=== PATIENT | female | born 1970 | race African-American/Black ===

== ENCOUNTER 2016-08-23 13:03 | Emergency (ER) | payer SELFPAY ==
[~2016-08-23] VITALS: Ht 154.9 cm; Wt 73.0 kg
[2016-08-23] MEDS ORDERED: CEFTRIAXONE 1 G PREMIX 50 ML IV ONE (14:00)
[2016-08-23 14:29] LABS: BASOPHILS % 0.4 % (0.0-2.0); HEMATOCRIT. 39.9 % (36.0-48.0); HEMOGLOBIN. 13.4 g/dL (12.0-16.0); LYMPHOCYTES % 24.4 % (20.0-50.0); MEAN CORPUSCULAR HEMOGLOBIN 29.1 pg (28.0-32.0); MEAN CORPUSCULAR HGB CONC 33.5 g/dL (31.0-37.0); MEAN CORPUSCULAR VOLUME 86.9 fL (81.0-99.0); MEAN PLATELET VOLUME 8.3 fl (7.4-10.4); MONOCYTES % 9.4 % (2.0-8.0); NEUTROPHILS % 63.8 % (40.0-76.0); PLATELET 243 x1000/uL (130-400); RED BLOOD CELL COUNT 4.59 mill/uL (4.2-5.4); WHITE BLOOD COUNT 7.6 x1000/uL (4.5-11.0)
[2016-08-23 14:39] LABS: ANION GAP 11; CALCIUM 9.1 mg/dL (8.5-10.1); CARBON DIOXIDE 30 mEq/L (21-32); CHLORIDE 105 mEq/L (98-107); INDEX HEMOLYSI 1 (1-3); INDEX ICTERIC 1 (1-4); INDEX LIPEMIC 1 (1-3); UREA NITROGEN BLOOD 12 mg/dL (7-21); eGFR > 60 mL/min (>60)
[2016-08-23 14:42] LABS: PARTIAL THROMBOPLASTIN TIME 26.1 sec (24.0-34.0); PROTHROMBIN TIME 10.7 sec
[2016-08-23] MEDS ORDERED: AZITHROMYCIN 500 MG TABLET PO ONE (14:45)
[2016-08-23 15:03] LABS: CLARITY URINE TURBID (CLEAR); COLOR URINE YELLOW (YELLOW); GLUCOSE URINE NEGATIVE (NEGATIVE); KETONES URINE NEGATIVE (NEGATIVE); LEUKOCYTE ESTERASE URINE 2+ (NEGATIVE); NITRITE URINE NEGATIVE (NEGATIVE); OCCULT BLOOD URINE 3+ (NEGATIVE); PH URINE 5.5 (4.5-8.0); PROTEIN URINE NEGATIVE (NEGATIVE); SPECIFIC GRAVITY URINE 1.015 (1.005-1.030)
[2016-08-23 15:30] VITALS: BP 129/84
[2016-08-23] MEDS ORDERED: CEFTRIAXONE SODIUM 250 MG/VIAL IM ONE (15:30)
[2016-08-23 15:50] LABS: BACTERIA URINE 4+; SQUAMOUS EPITHELIAL CELL URINE 2+ /lpf (RARE/1+)
[2016-08-26 04:20] LABS: CHLAMYDIA TRACHOMATIS NAA Negative (Negative); NEISSERIA GONORRHOEAE NAA Negative (Negative)
== END 2016-08-23 15:48 | disposition home or self-care (01) ==
LOC: ER 14:46
DX: K62.5 Hemorrhage of anus and rectum (principal); Z20.2 Contact with and (suspected) exposure to infections with a predominantly sexual mode of transmission; I10 Essential (primary) hypertension; Z98.890 Other specified postprocedural states; Z98.51 Tubal ligation status; Z88.8 Allergy status to other drugs, medicaments and biological substances
CPT/HCPCS: 36415; 80048; 81001; 81025; 85025; 85610; 85730; 86850; 86900; 86901; 87491; 87591; 96372; 99285; J0696; Z7610

== ENCOUNTER 2017-05-30 20:59 | Emergency (ER) | payer SELFPAY ==
[~2017-05-30] VITALS: Ht 154.9 cm; Wt 80.0 kg
[2017-05-30 23:14] VITALS: BP 119/82
[2017-05-30] MEDS ORDERED: ONDANSETRON 4MG ODT PO ONE (23:15)
== END 2017-05-31 00:35 | disposition home or self-care (01) ==
LOC: ER 22:29
DX: J06.9 Acute upper respiratory infection, unspecified (principal)
CPT/HCPCS: 71045; 81025; 87804; 99285; Q0162

== ENCOUNTER 2018-03-23 11:00 | Emergency (ER) | payer SELFPAY ==
[~2018-03-23] VITALS: Ht 154.9 cm; Wt 86.0 kg
[2018-03-23 11:08] VITALS: BP 155/103
[2018-03-23 13:08] LABS: CLARITY URINE CLEAR (CLEAR); COLOR URINE YELLOW (YELLOW); KETONES URINE NEGATIVE (NEGATIVE); LEUKOCYTE ESTERASE URINE NEGATIVE (NEGATIVE); NITRITE URINE NEGATIVE (NEGATIVE); OCCULT BLOOD URINE NEGATIVE (NEGATIVE); PROTEIN URINE NEGATIVE (NEGATIVE); SPECIFIC GRAVITY URINE 1.016 (1.005-1.030); UROBILINOGEN URINE 0.2 E.U./dL (0.2-1.0)
[2018-03-23] MEDS ORDERED: AZITHROMYCIN 500 MG TABLET PO ONE (13:15)
[2018-03-23] MEDS ORDERED: LIDOCAINE HCL/PF 1% 10 MG/ML 30ML VIAL INFIL ONE (13:15)
[2018-03-23] MEDS ORDERED: CEFTRIAXONE SODIUM 250 MG/VIAL IM ONE (13:15)
[2018-03-23] MEDS ORDERED: LIDOCAINE HCL/PF 1% 10 MG/ML 5ML VIAL IJ ONE (13:45)
== END 2018-03-23 14:06 | disposition home or self-care (01) ==
LOC: ER 11:00
DX: Z20.2 Contact with and (suspected) exposure to infections with a predominantly sexual mode of transmission (principal); R10.9 Unspecified abdominal pain; N89.8 Other specified noninflammatory disorders of vagina; Z88.6 Allergy status to analgesic agent; Z98.890 Other specified postprocedural states; Z98.51 Tubal ligation status
CPT/HCPCS: 81003; 81025; 96372; 99283; J0696; J3490

== ENCOUNTER 2023-04-01 07:46 | Emergency (ER) | payer OTHER ==
[~2023-04-01] VITALS: Ht 154.9 cm; Wt 97.0 kg
[2023-04-01 07:49] VITALS: BP 189/113; PULSE 85; TEMP 99.1; O2SAT 98
[2023-04-01] MEDS ORDERED: ONDANSETRON HCL 4MG TABLET PO ONE (10:45)
[2023-04-01] MEDS ORDERED: ACETAMINOPHEN 325MG TABLET PO ONE (10:45)
[2023-04-01] MEDS ORDERED: GUAI-948 MT (11:42)
[2023-04-01] MEDS ORDERED: ONDA4TAB50 MT (11:42)
[2023-04-01] MEDS ORDERED: ONDANSETRON 4MG ODT PO PRN (12:00)
== END 2023-04-01 12:31 | disposition home or self-care (01) ==
LOC: ER 07:46
DX: B34.9 Viral infection, unspecified (principal); Z88.6 Allergy status to analgesic agent
CPT/HCPCS: 99283; Q0162

== ENCOUNTER 2023-07-20 21:20 | Emergency (ER) | payer OTHER ==
[~2023-07-20] VITALS: Ht 154.9 cm; Wt 97.0 kg
[~2023-07-20 21:20] MED LIST: GUAI-948 MT; ONDA4TAB50 MT
[2023-07-20 22:00] VITALS: BP 189/106; PULSE 81; RESP 20; TEMP 98.2; O2SAT 98
[2023-07-20 23:28] LABS: CLARITY URINE CLEAR (CLEAR); COLOR URINE YELLOW (YELLOW); GLUCOSE URINE NEGATIVE (NEGATIVE); KETONES URINE NEGATIVE (NEGATIVE); LEUKOCYTE ESTERASE URINE NEGATIVE (NEGATIVE); NITRITE URINE NEGATIVE (NEGATIVE); OCCULT BLOOD URINE NEGATIVE (NEGATIVE); PROTEIN URINE NEGATIVE (NEGATIVE); SPECIFIC GRAVITY URINE 1.013 (1.005-1.030); UROBILINOGEN URINE 0.2 E.U./dL (0.2-1.0)
[2023-07-21] MEDS: ACETAMINOPHEN 325MG TABLET PO ONE (00:15)
[2023-07-21] MEDS ORDERED: DOXY-456 MT (02:19)
[2023-07-21] MEDS: DOXYCYCLINE HYCLATE 100MG CAPSULE PO NR (02:40)
[2023-07-21] MEDS: CEFTRIAXONE SODIUM 500MG VIAL IM NR (02:40)
[2023-07-21] MEDS: LIDOCAINE HCL 1% 20ML VIAL (Pyxis) INJ INFIL NR (02:55)
== END 2023-07-21 03:22 | disposition home or self-care (01) ==
LOC: ER 21:20
DX: N89.8 Other specified noninflammatory disorders of vagina (principal); Z11.3 Encounter for screening for infections with a predominantly sexual mode of transmission; I10 Essential (primary) hypertension; Z98.890 Other specified postprocedural states; Z88.8 Allergy status to other drugs, medicaments and biological substances
CPT/HCPCS: 81003; 81025; 99284; 87210; 87491; 96372; J0696; J3490; Z7610 ×3